=== PATIENT | male | born 2000 | race Caucasian/White ===

== ENCOUNTER 2025-06-07 08:35 | Day surgery (SDC) | payer OTHER ==
[~2025-06-07] VITALS: Ht 172.7 cm; Wt 71.6 kg
[~2025-06-07 08:35] MED LIST: ACETAMINOPHEN 1000MG/100ML IV BAG As Ordered ONE; LIDOCAINE 2% 100 MG/5 ML SDV (FOR ANES.) As Ordered ONE; MIDAZOLAM INJ 2 MG/2 ML VIAL As Ordered ONE; ONDANSETRON 4MG/2ML VIAL As Ordered ONE; dexAMETHasone 4 MG/ML 1 ML VIAL As Ordered ONE; dexmedeTOMIDine (4 MCG/ML) 200 MCG/50 ML BTL As Ordered ONE
[2025-06-07] MEDS ORDERED: LR 1,000 ML IV SCH (08:55)
[2025-06-07] MEDS: ceFAZolin SOD 2 GM IV ONCE IV ONE (09:38)
[2025-06-07] MEDS ORDERED: KETOROLAC 30 MG/ML 1 ML VIAL As Ordered ONE (09:40)
[2025-06-07] MEDS ORDERED: MORPHINE 4 MG/ML 1 ML VIAL IV PRN (11:00)
[2025-06-07] MEDS ORDERED: HYDROMORPHONE HCL 0.5 MG/0.5 ML SYRINGE IV PRN (11:00)
[2025-06-07] MEDS: ONDANSETRON 4MG/2ML VIAL IV PRN (11:26)
[2025-06-07] MEDS ORDERED: PERC5TAB12 PO (11:44)
[2025-06-07] MEDS: PROCHLORPERAZINE 10MG/2ML VIAL IV PRN (11:52)
[2025-06-07 12:46] VITALS: BP 125/66; TEMP 97.4; O2SAT 98
== END 2025-06-07 12:49 | disposition home or self-care (01) ==
LOC: M SDC 08:35
PROVIDERS: ATTEND Orthopaedic Surgery Hand Surgery
DX: M24.642 Ankylosis, left hand (principal)
CPT/HCPCS: 26445; 26525; 76000; J0131; J0688; J0780; J1100; J1885; J2250; J2405; J2765; J3010